=== PATIENT | female | born 1990 | race Caucasian/White ===

== ENCOUNTER 2024-05-07 14:17 | Emergency (ER) | payer BC ==
[~2024-05-07] VITALS: Ht 165.1 cm; Wt 126.4 kg
[2024-05-07 15:07] LABS: ALBUMIN 4.2 g/dL (3.5-5.0)
[2024-05-07 15:08] LABS: CALCIUM 9.5 mg/dL (8.3-10.5)
[2024-05-07 15:09] LABS: TOTAL PROTEIN 7.3 g/dL (6.4-8.3)
[2024-05-07 15:11] LABS: TOTAL BILIRUBIN 0.3 mg/dL (0.2-1.2)
[2024-05-07 15:34] LABS: URINE APPEARANCE CLEAR (CLEAR); URINE BILIRUBIN NEGATIVE (NEGATIVE); URINE BLOOD NEGATIVE (NEGATIVE); URINE COLOR YELLOW (YELLOW); URINE GLUCOSE NEGATIVE (NEGATIVE); URINE KETONE NEGATIVE (NEGATIVE); URINE LEUKOCYTE ESTERASE TRACE (NEGATIVE); URINE NITRATE NEGATIVE (NEGATIVE); URINE PROTEIN(semi-quant) NEGATIVE (NEGATIVE); URINE WBC 0-1 /hpf (0-3)
[2024-05-07 15:53] LABS: BASO # 0.02 K/mm3 (0.02-0.10); EOS # 0.08 K/mm3 (0.04-0.40); EOS % 0.8 % (1.0-5.0); HEMATOCRIT 42.3 % (37.0-47.0); HEMOGLOBIN 13.5 g/dL (12.5-16.0); LYMPH# 2.22 K/mm3 (1.50-4.00); MEAN CELL VOLUME 84 fl (78-100); MEAN CORPUSCULAR HEMOGLOBIN 27 pg (27-31); MEAN CORPUSCULAR HGB CONC 32 g/dL (33-37); MEAN PLATELET VOLUME 11.4 fl (7.4-10.4); MONO # 0.44 K/mm3 (0.20-0.80); NEU # 7.51 K/mm3 (1.40-6.50); PLATELET COUNT 283 K/mm3 (130-400); RED BLOOD COUNT 5.06 M/mm3 (4.10-5.30); RED CELL DISTRIBUTION WIDTH 13.8 % (11.5-14.5); WHITE BLOOD COUNT 10.3 K/mm3 (4.8-10.8)
[2024-05-07] MEDS ORDERED: cefTRIAXone 1 G in Water For Injection,Sterile 10 ML IV ONE (16:00)
[2024-05-07] MEDS ORDERED: NS 1,000 ML IV SCH (16:15)
[2024-05-07] MEDS ORDERED: Iohexol 300 - 100 ML VIAL IV ONE (16:25)
[2024-05-07] MEDS ORDERED: Ibuprofen 200 MG TAB PO ONE (17:00)
[2024-05-07] MEDS ORDERED: CEPHALEXIN500 M1 PO (17:03)
[2024-05-07 17:51] VITALS: BP 115/70
== END 2024-05-07 17:52 | disposition home or self-care (01) ==
LOC: ED 14:17
PROVIDERS: Family Medicine
DX: N39.0 Urinary tract infection, site not specified (principal); K63.89 Other specified diseases of intestine; F17.200 Nicotine dependence, unspecified, uncomplicated
CPT/HCPCS: J0696; J7030; Q9967